=== PATIENT | female | born 1970 | race Caucasian/White ===

== ENCOUNTER → 2019-08-15 | Day surgery (SDC) | payer OTHER ==
[~2019-08-15] MED LIST: ACETAMINOPHEN 325 MG TABLET PO PRN; ALBU2.5V8 IH; ALBUTEROL SULFATE 2.5 MG/3 ML NEBU. NEB PRN; ATROPINE 0.5 MG/5 ML DISP.SYRIN. IV PRN; CA C1TAB66 PO; CETI10TA24 PO; FLUT12AE IH; IV RINGERS SOLUTION,LACTATED 1,000 ML IV SCH; LACT1CAP29 PO; MONT10TA80 PO; MULT-245 PO; OMEP20TA63 PO; ONDANSETRON PF 4 MG/2 ML VIAL. IV PRN; PHENOL ORAL SPRAY 177ML BOTTLE. MM PRN; PROPOFOL 80 ML IV ONE; diphenhydrAMINE 50 MG/ML VIAL IV PRN
[2019-08-15 12:25] VITALS: BP 114/75
--- NOTE | 2019-08-16 14:07 | PATHOLOGY ---
[facility] Accession Number: [id number] . 01 Material submitted: . sigmoid colon - SIGMOID POLYP . 01 Clinical history: . None provided . 02 Diagnosis: Colon biopsy, sigmoid polyp: - Hyperplastic polyp. . (JPM:neri; 08/16/2019) QMS 08/16/2019 0854 Local . 02 Comment: There are no adenomatous changes or evidence of malignancy. . 02 Electronically signed: . Chirag Ellison MD, Pathologist NPI- [id number] . 01 Gross description: . The specimen is received in formalin, labeled "Gaspar, Mariajose, sigmoid polyp" and consists of a fragment of pink-hood tissue measuring 0.6 x 0.5 x 0.2 cm which is entirely submitted in A1. (SDY; 08/15/2019) SYU/SYU 08/15/2019 1718 Local . 02 Pathologist provided ICD-10: K63.5 . 02 CPT . 077948 Specimen Comment: A courtesy copy of this report has been sent to [phone], [phone] Specimen Comment: [id number] Specimen Comment: Report sent to / DR KAUFFMAN Performed at: 01 [facility] [address], [place] [id number] MD Remberto Acevedo MD Phone: [phone] Performed at: 02 [facility] [address], [place] [id number] MD Chirag Ellison MD Phone: [phone]
== END ==
LOC: SURG 08:58
PROVIDERS: ATTEND Internal Medicine Gastroenterology
DX: Z12.11 Encounter for screening for malignant neoplasm of colon (principal); K63.5 Polyp of colon; K57.30 Diverticulosis of large intestine without perforation or abscess without bleeding; K20.9 Esophagitis, unspecified; J45.909 Unspecified asthma, uncomplicated; Z98.0 Intestinal bypass and anastomosis status; Z83.71 Family history of colonic polyps; Z88.1 Allergy status to other antibiotic agents; Z91.040 Latex allergy status; Z98.84 Bariatric surgery status; Z85.3 Personal history of malignant neoplasm of breast; Z90.13 Acquired absence of bilateral breasts and nipples
CPT/HCPCS: 43235; 45385; 88305; J2704; J7120

== ENCOUNTER 2020-05-22 16:30 | Emergency (ER) | payer OTHER ==
[~2020-05-22] VITALS: Ht 167.6 cm; Wt 81.0 kg
[~2020-05-22 16:30] MED LIST changes: -ACETAMINOPHEN 325 MG TABLET PO PRN; -ALBUTEROL SULFATE 2.5 MG/3 ML NEBU. NEB PRN; -ATROPINE 0.5 MG/5 ML DISP.SYRIN. IV PRN; -CETI10TA24 PO; +CETI10TA74 PO; -IV RINGERS SOLUTION,LACTATED 1,000 ML IV SCH; -ONDANSETRON PF 4 MG/2 ML VIAL. IV PRN; -PHENOL ORAL SPRAY 177ML BOTTLE. MM PRN; -PROPOFOL 80 ML IV ONE; -diphenhydrAMINE 50 MG/ML VIAL IV PRN
[2020-05-22 16:45] VITALS: BP 116/85
--- NOTE | 2020-05-22 17:22 | PHYS DOC ---
Adult General Chief Complaint Chief Complaint: MULTIPLE COMPLAINTS [facility] Patient is a 49-year-old female who presents to the emergency room for concern of a DVT in her left leg. Patient states that on Wednesday she started feeling like she was getting a charley horse in her left calf. This feeling has not gotten any better. She states that it stays mostly in the calf. If she flexes the foot it goes up the leg. She has noticed a minimal amount of swelling. She has not noticed any skin changes. (MARQUES SHARP MD) Review of Systems Review of Systems Complete ROS is negative unless otherwise documented in HPI (MARQUES SHARP MD) Allergies Allergies Allergies Coded Allergies Type Severity Reaction Last Updated Verified Latex, Natural Rubber Allergy Unknown 08/10/19 Yes Sulfa (Sulfonamide Antibiotics) Allergy Unknown 08/10/19 Yes (MARQUES SHARP MD) Physical Exam Physical Exam General: Awake, alert, NAD. Well Nourished, well hydrated. Cooperative HEENT: Atraumatic, EOMI, PERRL, airway patent, moist oral mucosa Neck: Supple, trachea midline Respiratory: CTA bilaterally, normal effort, no wheezing/crackles CV: RRR, no murmur, cap refill <2 GI: Soft, nondistended, nontender, no masses MSK: No obvious deformities. Left lower extremity: Varicose veins, no edema, no erythema, tenderness along the calf Skin: Warm, dry, intact Neuro: A&O x3, speech NL, sensory and motor grossly intact, no focal deficits Psych: Normal affect, normal mood, not suicidal or homicidal (MARQUES SHARP MD) EKG EKG [] (MARQUES SHARP MD) Radiology/Procedures Radiology/Procedures [] (MARQUES SHARP MD) Radiology/Procedures VENOUS LOWER EXTREMITY LEFT History: Reason: swelling, calf pain / Spl. Instructions: / History: Comparison: None. Discussion: Multiple longitudinal and transverse high resolution real-time images of the venous system of left lower extremity were obtained with color and Doppler sampling. The common femoral, superficial femoral, popliteal and proximal calf veins are all patent and demonstrate normal flow and compressibility. Normal respiratory phasicity and augmentation is present. Impression: 1. No evidence of deep vein thrombosis. (DIANELYS CRENSHAW MD) Heart Score Risk Factors: Risk Factors: DM, Current or recent (<one month) smoker, HTN, HLP, family history of CAD, obesity. Risk Scores: Risk Factors: DM, Current or recent (<one month) smoker, HTN, HLP, family history of CAD, obesity. (MARQUES SHARP MD) Course & Med Decision Making Course & Med Decision Making Pertinent Labs and Imaging studies reviewed. (See chart for details) Patient is 49-year-old female presents to the emergency room for concern of a DVT. Ultrasound will be ordered. Coags were ordered to determine baseline. BMP and magnesium were ordered to evaluate for possible electrolyte abnormalities that could be causing cramping. Patient discussed with oncoming physician who will assume care. (MARQUES SHARP MD) Course & Med Decision Making Ultrasound negative. 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 Recommended follow-up ultrasound in 1 week from today prior to starting hormone therapy. (DIANELYS CRENSHAW MD) Dragon Disclaimer Dragon Disclaimer This electronic medical record was generated, in whole or in part, using a voice recognition dictation system. (MARQUES SHARP MD) Departure Departure: Impression: Primary Impression: Pain of left calf Referrals: SHUN ZUÑIGA DO (PCP) MARQUES SHARP MD May 22, 2020 17:22 DIANELYS CRENSHAW MD May 22, 2020 18:31
[2020-05-22 17:30] LABS: CALCIUM 8.8 mg/dL (8.5-10.1); CREATININE 0.7 mg/dL (0.6-1.0); GFR 88.2; POTASSIUM 4.2 mmol/L (3.5-5.1)
--- NOTE | 2020-05-22 18:09 | RAD ---
VENOUS LOWER EXTREMITY LEFT History: Reason: swelling, calf pain / Spl. Instructions: / History: Comparison: None. Discussion: Multiple longitudinal and transverse high resolution real-time images of the venous system of left lower extremity were obtained with color and Doppler sampling. The common femoral, superficial femoral, popliteal and proximal calf veins are all patent and demonstrate normal flow and compressibility. Normal respiratory phasicity and augmentation is present. Impression: 1. No evidence of deep vein thrombosis. Electronically signed by: Gume Knutson DO (05/22/2020 6:06 PM) [facility]
== END 2020-05-22 18:46 | disposition home or self-care (01) ==
LOC: ER 16:30
DX: M79.605 Pain in left leg (principal); R22.42 Localized swelling, mass and lump, left lower limb; Z88.2 Allergy status to sulfonamides; Z91.041 Radiographic dye allergy status
CPT/HCPCS: 36415; 80048; 83735; 85610; 85730; 93971; 99284